=== PATIENT | male | born 1950 | race Caucasian/White ===

== ENCOUNTER → 2019-02-16 | Outpatient (CLI) | payer BC ==
[~2019-02-16] MED LIST: ALOE VERA JUICE; AVODART 0.5MG0.5 MG PO; DOXYCYCLINE 10100 MG PO; GARLIC SUPPLEM300 MG PO; LISINOPRIL2.5 MG PO; PERCOCET 5/321 UDTAB PO; VITAMIN B12 SL
== END ==
LOC: COL.RAD 07:14
DX: M48.061 Spinal stenosis, lumbar region without neurogenic claudication (principal); M50.31 Other cervical disc degeneration, high cervical region; M50.21 Other cervical disc displacement, high cervical region; G95.89 Other specified diseases of spinal cord; Z98.1 Arthrodesis status

== ENCOUNTER → 2020-01-02 | Outpatient (CLI) | payer BC | LOC: COL.RAD 07:02 | DX: M50.121 Cervical disc disorder at C4-C5 level with radiculopathy (principal); M50.10 Cervical disc disorder with radiculopathy, unspecified cervical region; M48.02 Spinal stenosis, cervical region; G95.19 Other vascular myelopathies; Z98.1 Arthrodesis status ==

== ENCOUNTER → 2023-11-11 | Outpatient (CLI) | payer MEDICARE, BC ==
[~2023-11-11] MED LIST changes: +EPA FISH OIL1 SGL PO; +MOBIC15 MG PO; +PRILOSEC 20MG20 MG PO; +ULTRAM 50MG TAB50 MG PO
== END ==
LOC: COL.RAD 08:10
DX: Z12.2 Encounter for screening for malignant neoplasm of respiratory organs (principal); F17.200 Nicotine dependence, unspecified, uncomplicated